=== PATIENT | male | born 1950 | race Caucasian/White ===

== ENCOUNTER 2023-09-01 10:26 | Outpatient (RCR) | payer MEDICARE, SELFPAY | END 2023-09-30 16:04 | disposition home or self-care (01) | LOC: ST 10:26 | PROVIDERS: PCP Family Medicine | DX: I69.320 Aphasia following cerebral infarction (principal); I69.322 Dysarthria following cerebral infarction; R13.10 Dysphagia, unspecified; I69.391 Dysphagia following cerebral infarction | CPT/HCPCS: 92507; 92523 ==